=== PATIENT | female | born 1945 | race Caucasian/White ===

== ENCOUNTER → 2017-04-22 | Outpatient (CLI) | payer OTHER, MEDICARE ==
[~2017-04-22] MED LIST: CYMBALTA60 MG PO; DAILY VITAMIN1 EAC5 PO; DEPAKOTE ER500 MG PO; GEODON 80 MG CA80 MG PO; IBUPROFEN 200200 M1 PO; LISINOPRIL-HCT1 EAC1 PO; VITAMIN D1000 UNI1 PO; VITAMINC500 PO
[2017-04-22 12:04] LABS: ABSOLUTE NEUTROPHILS 5.9 thou/uL (1.4-8.2); BASOPHILS 0.7 % (0.0-2.0); EOSINOPHILS 1.6 % (0.0-3.0); HEMATOCRIT 41.1 % (37.0-47.0); HEMOGLOBIN 13.6 gm/dL (12.0-15.0); MCH 28.6 pg (26.0-34.0); MCHC 33.1 g/dL (28.0-37.0); MCV 86.4 fL (80.0-100.0); MONOCYTES 6.9 % (1.0-8.0); PLATELET COUNT 223 thou/uL (150-400); POLYS 66.8 % (36.0-66.0); RBC 4.76 mil/uL (4.20-5.00); RDW 14.3 % (10.5-14.5); WBC 8.9 thou/uL (4.0-11.0)
[2017-04-22 12:07] LABS: MANUAL DIFF NO
[2017-04-22 12:17] LABS: CALCIUM 9.2 mg/dL (8.5-10.1); CREATININE 1.4 mg/dL (0.6-1.0); POTASSIUM 3.8 mmol/L (3.5-5.1)
[2017-04-22 12:22] LABS: ALBUMIN 3.7 g/dL (3.4-5.0); TOTAL BILIRUBIN 0.5 mg/dL (<0.1-1.0); TOTAL PROTEIN 7.3 g/dL (6.4-8.2)
== END ==
LOC: RAD 11:30
PROVIDERS: Neuromusculoskeletal Medicine & OMM
DX: I10 Essential (primary) hypertension (principal); M47.896 Other spondylosis, lumbar region; M47.892 Other spondylosis, cervical region

== ENCOUNTER 2020-09-05 10:39 | Emergency (ER) | payer OTHER ==
[~2020-09-05] VITALS: Ht 162.6 cm; Wt 126.5 kg
[2020-09-05 11:07] LABS: ABSOLUTE NEUTROPHILS 8.2 thou/uL (1.4-8.2); BASOPHILS 0.4 % (0.0-2.0); HEMATOCRIT 39.2 % (37.0-47.0); HEMOGLOBIN 12.4 gm/dL (12.0-15.0); LYMPHOCYTES 14.3 % (24.0-44.0); MCH 28.4 pg (26.0-34.0); MCHC 31.8 g/dL (28.0-37.0); MCV 89.4 fL (80.0-100.0); MONOCYTES 5.4 % (1.0-8.0); PLATELET COUNT 257 thou/uL (150-400); POLYS 76.9 % (36.0-66.0); RBC 4.38 mil/uL (4.20-5.00); RDW 13.8 % (10.5-14.5); WBC 10.6 thou/uL (4.0-11.0)
[2020-09-05 11:16] LABS: CALCIUM 8.7 mg/dL (8.5-10.1); CREATININE 1.7 mg/dL (0.6-1.0); POTASSIUM 4.2 mmol/L (3.5-5.1)
[2020-09-05 11:22] LABS: ALBUMIN 3.7 g/dL (3.4-5.0); TOTAL BILIRUBIN 0.6 mg/dL (0.2-1.0); TOTAL PROTEIN 7.1 g/dL (6.4-8.2)
[2020-09-05 12:55] LABS: URINE BILIRUBIN NEGATIVE (Negative); URINE BLOOD TRACE (Negative); URINE CLARITY CLEAR; URINE COLOR YELLOW; URINE GLUCOSE-RANDOM* NEGATIVE (Negative); URINE KETONES NEGATIVE (Negative); URINE NITRITE-REFLEX NEGATIVE (Negative); URINE PROTEIN (DIPSTICK) NEGATIVE (Negative); URINE UROBILINOGEN 0.2 E.U./dl (0.2-1.0)
[2020-09-05 12:58] LABS: URINE LEUKOCYTES-REFLEX 1+ (Negative)
[2020-09-05] MEDS ORDERED: HYDROCODON-ACE1 EAC7 PO ×2 (13:05→13:36)
[2020-09-05] MEDS ORDERED: CIPRO500 M1 PO ×2 (13:05→13:36)
[2020-09-05] MEDS ORDERED: FLAGYL500 M1 PO ×2 (13:05→13:36)
[2020-09-05 13:43] LABS: CASTS None Seen /LPF (None Seen); SQUAMOUS >10 Many /LPF (0-3)
[2020-09-05 13:44] LABS: BACTERIA-REFLEX 1-9 Few /HPF (None Seen); CRYSTALS None Seen /LPF (None Seen); URINE RBC 0-2 Rare /HPF (0-2); URINE WBC-REFLEX 6-15 Few /HPF (0-5)
[2020-09-05 13:45] VITALS: BP 148/69
== END 2020-09-05 13:45 | disposition home or self-care (01) ==
LOC: ER 10:39
PROVIDERS: Physician Assistant
DX: K57.32 Diverticulitis of large intestine without perforation or abscess without bleeding (principal); N39.0 Urinary tract infection, site not specified; R10.32 Left lower quadrant pain; I10 Essential (primary) hypertension; Z88.0 Allergy status to penicillin; Z88.2 Allergy status to sulfonamides; Z79.899 Other long term (current) drug therapy; Z86.73 Personal history of transient ischemic attack (TIA), and cerebral infarction without residual deficits; Z90.89 Acquired absence of other organs

== ENCOUNTER → 2021-06-22 | Outpatient (CLI) | payer OTHER ==
[~2021-06-22] MED LIST changes: +CIPRO500 M1 PO; +FLAGYL500 M1 PO; +HYDROCODON-ACE1 EAC7 PO
== END ==
LOC: RAD 12:58
PROVIDERS: ATTEND Neuromusculoskeletal Medicine & OMM
DX: M16.12 Unilateral primary osteoarthritis, left hip (principal); M25.552 Pain in left hip